=== PATIENT | male | born 1960 | race Caucasian/White ===

== ENCOUNTER 2016-11-14 23:54 | Inpatient (IN) ==
[2016-11-15] MEDS ORDERED: NITROGLYCERIN 2% OINT 1 INCH/GM PACK TOP STA (00:15)
[2016-11-15] MEDS ORDERED: MORPHINE 2 MG/1 ML SYRINGE IV STA (00:15)
[2016-11-15] MEDS ORDERED: hydrALAZINE 20 MG/1 ML VIAL IV STA (00:15)
[2016-11-15] MEDS ORDERED: ASPIRIN 325 MG TABLET PO STA (00:15)
[2016-11-15] MEDS ORDERED: ALUM/MAG/SIMETH/LIDO VISC 1:1 30 ML BOTTLE PO STA (00:15)
[2016-11-15] MEDS ORDERED: ONDANSETRON 4 MG/2 ML VIAL IV STA (00:15)
[2016-11-15] MEDS ORDERED: FUROSEMIDE 40 MG/4 ML VIAL IV STA (00:15)
[2016-11-15] MEDS ORDERED: NITROGLYCERIN 2% OINT 1 INCH/GM PACK TOP ONE (00:23)
[2016-11-15] MEDS ORDERED: hydrALAZINE 20 MG/1 ML VIAL ONE (00:23)
[2016-11-15] MEDS ORDERED: ASPIRIN 325 MG TABLET ONE (00:24)
[2016-11-15] MEDS ORDERED: MORPHINE 2 MG/1 ML SYRINGE ONE (00:24)
[2016-11-15] MEDS ORDERED: FUROSEMIDE 20 MG/2 ML VIAL ONE (00:24)
[2016-11-15] MEDS ORDERED: FUROSEMIDE 40 MG/4 ML VIAL ONE (00:24)
[2016-11-15] MEDS ORDERED: ONDANSETRON 4 MG/2 ML VIAL ONE (00:24)
[2016-11-15] MEDS ORDERED: ALUM/MAG/SIMETH/LIDO VISC 1:1 30 ML BOTTLE PO ONE (00:25)
[2016-11-15 00:29] LABS: PT Patient Result 10.1 SECS
[2016-11-15 00:42] LABS: Basophils % 0.8 % (0.0-0.8); Eosinophils # 0.2 10*3/uL (0.0-0.87); Eosinophils % 4.4 % (0.00-10.9); Hematocrit 39.5 VOL% (42.0-52.0); Hemoglobin 13.1 GM/DL (14.0-18.0); Immature Granulocytes % 0.6 %; Immature Granulocytes Absolute 0.03 #; Lymphocytes # 1.5 10*3/uL (1.4-4.0); Lymphocytes % 30.1 % (21.2-54.2); Mean Corpuscular HGB Conc 33.2 GM/DL (32-36); Mean Corpuscular Hemoglobin 29 PG (27-34); Mean Corpuscular Volume 86.4 FL (87-102); Mean Platelet Volume 11.5 FL (9.6-12.0); Monocytes # 0.4 10*3/uL (0.11-0.8); Monocytes % 7.6 % (1.7-12.7); Neutrophils # 2.8 10*3/uL (1.4-7.4); Neutrophils % 56.5 % (38.7-73.9); Platelet Count 195 T/CUMM (130-400); Red Blood Count 4.57 MC/CUMM (3.8-5.5); Red Cell Distribution Width 13.2 % (9.3-17.3)
[2016-11-15 00:44] LABS: Alanine Aminotransferase 34 U/L (16-61); Albumin 3.5 G/DL (3.4-5.0); Alkaline Phosphatase 58 U/L (45-117); Aspartate Amino Transferase 18 U/L (0-37); Bilirubin,Total < 0.39 MG/DL (0.2-1.0); Blood Urea Nitrogen 22 MG/DL (7-18); Calcium 9.2 MG/DL (8.5-10.1); Glucose 163 MG/DL (74-106); Magnesium 1.9 MG/DL (1.8-2.4); Osmolality,Calculated 283.5 MOS/KG (273-304); Potassium 3.9 MMOL/L (3.5-5.1); Sodium 139 MMOL/L (136-145); Total Protein 7.2 G/DL (6.4-8.3)
--- NOTE | 2016-11-15 00:46 | Emergency Department Note ---
Marcello Nunez Brittany, am scribing for, and in the presence of, Brodie Jorge MD 00:19. Luisito Nunez Charles R, MD, personally performed the services described in this documentation, ascribed by Shante Armendariz in my presence, and it is both accurate and complete . Arrival - Arrival Chief Complaint: Chest Pain Stated Complaint: CHEST PAIN ED Nursing Triage Note: Pt brought by EMS with c/o Chest Pain/ SOB that started a week ago and got worse tonight. Pt was given 40mg Lasix, Nitro x3, and 4mg Zofran. Pt output in ambulance was 600ml. Pt denies any chest pain during triage. BP elevated 209/123. Mode of Arrival: Stretcher Limitations: No Limitations Source: Patient - History of Present Illness HPI Narrative: This is a 56 y/o black male,who presents to the ED by EMS with c/o CP which has been on and off for the past 2 months. He states the pain become worse tonight, prompting the ED visit. He denies any diaphoresis or nausea/vomiting. He notes being SOB with the chest pain. He denies any radiation of the pain. he states he is completely pain free now in the ED. Pt denies having a heart cath. Pt has no other complaints/pain in the ED at this time. Pt has a PMhx of NIDDM, HTN, dyslpidemia, obstructive sleep apnea. Pt has had a colonoscopy. Pt has a family medical hx of heart disease. Pt denies the use of tobacco products and street drugs, but notes occasionally drinking. Onset (ago): month(s) (Started 2 months ago) Consistency: intermittent, now resolved Severity: moderate Allergies/Adverse Reactions: Allergies Allergy/AdvReac Type Severity Reaction Status Date / Time No Known Allergies Allergy Verified 11/15/16 00:00 Home Medications: Home Medications Medication Instructions Recorded Confirmed Type Atorvastatin [Lipitor] 80 mg PO BEDTIME 09/12/15 09/12/15 History Metoprolol Tartrate 25 mg PO DAILY 09/12/15 09/12/15 History Naproxen [Naproxen Tab] 500 mg PO BID W/MEALS 09/12/15 09/16/15 History Saxagliptin HCl [Onglyza] 2.5 mg PO DAILY 09/12/15 09/12/15 History amLODIPine [Norvasc] 10 mg PO DAILY 09/12/15 09/12/15 History cloNIDine TAB [Catapres Tab] 0.2 mg PO BID 09/12/15 11/15/16 History Aspirin 81 mg PO 11/15/16 History Review of System - Review of System 12 point system: reviewed and no additional remarkable complaints except as stated - Review of System Constitutional: Absent: diaphoresis Cardiovascular: Present: chest pain, dyspnea on exertion Gastrointestinal: Absent: nausea, vomiting Medical,Surgical,& Family Hx - Medical History Cardio: History of: Hypertension Neurology: No history of: Seizures Endocrine: History of: Diabetes Mellitus (NIDDM), Dyslipidemia Respiratory: History of: Obstructive Sleep Apnea (C PAP) - Surgical History Abdominal Surgeries: Surgical HX of: Colonoscopy Patient denies: Cholecystectomy, EGD - Social History Smoking Status: Never smoker Frequency of Alcohol Use: Occasionally Type of Drug Use: None Exam Vital Signs: Vital Signs Temperature 97.5 F L 11/14/16 23:55 Pulse Rate 74 11/14/16 23:55 Respiratory Rate 18 11/14/16 23:55 Blood Pressure 209/123 11/14/16 23:55 O2 Sat by Pulse Oximetry 98 11/14/16 23:55 - General General appearance: alert, in no apparent distress - Head Head exam: Present: atraumatic, normocephalic, normal inspection - Eye Eye exam: Present: normal appearance, PERRL, EOMI. Absent: nystagmus, miosis, mydriasis - ENT ENT exam: Present: normal exam, normal oropharynx, mucous membranes moist, TM's normal bilaterally, normal external ear exam - Neck Neck exam: Present: normal inspection, full ROM, trachea midline. Absent: tenderness, meningismus, lymphadenopathy, thyromegaly - Chest Chest inspection: Present: normal inspection, symmetric chest wall rise. Absent : tenderness, rash, abscess - Respiratory Respiratory exam: Present: normal lung sounds bilaterally. Absent: rales, respiratory distress, rhonchi, stridor, wheezes - Cardiovascular Cardiovascular exam: Present: regular rate, normal rhythm, normal heart sounds. Absent: murmur, rubs, gallop, clicks, JVD - Abdominal Exam Abdominal exam: Present: soft, normal bowel sounds. Absent: distention, tenderness, guarding, rebound, rigidity - Rectal Exam Rectal exam: Present: deferred - Extremities Exam Extremities exam: Present: normal capillary refill, pedal edema (+1 pitting edema bilaterally ). Absent: joint swelling, calf tenderness - Back Exam Back exam: Present: normal inspection, full ROM. Absent: tenderness, muscle spasm, rashes - Neurological Exam Neurological exam: Present: alert, oriented X3, CN II-XII intact. Absent: motor sensory deficit - Psychiatric Psychiatric exam: Present: normal affect, normal mood. Absent: depressed, agitated, anxious, flat affect, manic - Skin Skin exam: Present: warm, dry, intact, normal color. Absent: rash, cyanosis, diaphoresis, erythema, pallor, mottled Course - Reevaluation(s) Reevaluation #1: Patient is still pain-free. Patient understands he will be admitted to the hospital for cardiology suspected underlying bony artery disease. Time: 01:00 - Consultations Consultation #1: Spoke to Dr. Grimes cardiology on-call reviewed EKG with him. He agreed no reason to go to the Technical Lead, he agreed no ST elevation CO this point patient is pain-free at this time. Pains been going on for a month. He did agreed to admit the patient for further workup Time: 00:12 Results - Labs CBC & BMP: 11/15/16 00:01 11/15/16 00:01 Lab Results: I have reviewed the patients labs Critical Care Time Critical Care Time: Yes Total Critical Care Time: 60 Disposition Clinical Impression: Chest pain, Hypertensive urgency, Acute coronary syndrome, Elevated troponin Case discussed with: patient, patient's family Disposition: Still a Patient Condition: Guarded Time of Disposition: 00:56
[2016-11-15] MEDS ORDERED: ENOXAPARIN 100 MG/ML SYRINGE SUBCUT STA (00:56)
[2016-11-15] MEDS ORDERED: ENOXAPARIN 100 MG/ML SYRINGE SUBCUT ONE (01:03)
[2016-11-15] MEDS ORDERED: ALBUTEROL/IPRATROPIUM 3 ML NEB RESP TX PRN (01:54)
[2016-11-15] MEDS ORDERED: POTASSIUM CHLORIDE 20 MEQ TABLET PO PRN (01:54)
[2016-11-15] MEDS ORDERED: GLUCAGON 1 MG VIAL IM PRN (01:54)
[2016-11-15] MEDS ORDERED: DEXTROSE 50% 25 GM/50 ML VIAL IV PRN (01:54)
[2016-11-15] MEDS ORDERED: ONDANSETRON 4 MG/2 ML VIAL IV PRN (01:54)
[2016-11-15] MEDS ORDERED: MORPHINE 2 MG/1 ML SYRINGE IV PRN (01:54)
[2016-11-15] MEDS ORDERED: MAGNESIUM SULF RIDER 2 GM in PREMIX 1 EACH IV PRN ×2 (01:54→09:40)
[2016-11-15] MEDS ORDERED: SODIUM CHLORIDE 0.9% 1,000 ML IV SCH (01:54)
[2016-11-15] MEDS ORDERED: MAGNESIUM SULF RIDER 4 GM in PREMIX 1 EACH IV PRN (01:54)
[2016-11-15 04:58] LABS: Basophils % 0.8 % (0.0-0.8); Eosinophils # 0.2 10*3/uL (0.0-0.87); Eosinophils % 4.1 % (0.00-10.9); Hematocrit 42.9 VOL% (42.0-52.0); Hemoglobin 14.8 GM/DL (14.0-18.0); Immature Granulocytes % 0.2 %; Immature Granulocytes Absolute 0.01 #; Lymphocytes % 38.6 % (21.2-54.2); Mean Corpuscular HGB Conc 34.5 GM/DL (32-36); Mean Corpuscular Hemoglobin 29 PG (27-34); Mean Corpuscular Volume 85.3 FL (87-102); Mean Platelet Volume 12.4 FL (9.6-12.0); Monocytes # 0.4 10*3/uL (0.11-0.8); Monocytes % 8.3 % (1.7-12.7); Neutrophils # 2.5 10*3/uL (1.4-7.4); Platelet Count 223 T/CUMM (130-400); Red Blood Count 5.03 MC/CUMM (3.8-5.5); Red Cell Distribution Width 13.2 % (9.3-17.3); White Blood Count 5.2 T/CUMM (4-12)
[2016-11-15 05:50] LABS: Albumin 3.7 G/DL (3.4-5.0); Bilirubin,Total 0.8 MG/DL (0.2-1.0); Calcium 8.5 MG/DL (8.5-10.1); Magnesium 1.9 MG/DL (1.8-2.4); Osmolality,Calculated 281.7 MOS/KG (273-304); Potassium 3.8 MMOL/L (3.5-5.1); Risk Ratio 8.4; Total Protein 7.7 G/DL (6.4-8.3); VLDL CHOLESTEROL 158.8 MG/DL
[2016-11-15] MEDS: NITROGLYCERIN 2% OINT 1 INCH/GM PACK TOP SCH ×3 (06:52→17:56)
--- NOTE | 2016-11-15 07:47 | XRay Report ---
Exam: XR chest 1V portable Indication: Chest pain Comparison study: 03/21/2016 radiograph Findings: The heart, mediastinum and bony structures are stable from prior. There is no focal consolidation, pneumothorax or pleural effusion identified. Impression: No acute cardiopulmonary process. PROCEDURE INTERPRETED AT [facility] [place] DEPARTMENT OF RADIOLOGY Final Report Signed by: José Luis Dailey
[2016-11-15] MEDS ORDERED: METOPROLOL TARTRATE 25 MG TABLET PO SCH (08:00)
[2016-11-15] MEDS: INSULIN REGULAR 100 UNIT/ML SUBCUT SCH ×4 (08:02→22:31)
[2016-11-15] MEDS: PANTOPRAZOLE 40 MG TABLET PO SCH (08:02)
--- NOTE | 2016-11-15 08:14 | EKG Report ---
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
--- NOTE | 2016-11-15 08:14 | XRay Report ---
History short of breath Comparison 11/15/2016 The heart is at the upper range normal in size. Mediastinal contours unchanged No congestive failure or confluent infiltrate is seen Impression: Stable portable chest PROCEDURE INTERPRETED AT [facility] DEPARTMENT OF RADIOLOGY Final Report Signed by: Dr. Julia Kelsey
[2016-11-15] MEDS: ASPIRIN CHEW 81 MG TABLET PO SCH (08:19)
--- NOTE | 2016-11-15 08:38 | EKG Report ---
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
[2016-11-15] MEDS ORDERED: ASPIRIN EC 325 MG TABLET PO SCH (09:00)
--- NOTE | 2016-11-15 09:05 | Cardiology History & Physical ---
Assessment and Plan - Time spent with patient Time spent with patient: Greater than 30 minutes (1) Chest pain Status: Acute Assessment and plan: See plan of care listed below. Current Visit: Yes (2) Hypertensive urgency Status: Acute Assessment and plan: See plan of care listed below. Current Visit: Yes (3) Elevated troponin Status: Acute Assessment and plan: See plan of care listed below. Current Visit: Yes (4) Dyslipidemia Status: Chronic Assessment and plan: See plan of care listed below. Current Visit: Yes (5) Diabetes Status: Chronic Assessment and plan: See plan of care listed below. Current Visit: Yes (6) Obstructive sleep apnea Status: Chronic Assessment and plan: See plan of care listed below. Current Visit: Yes (7) GERD (gastroesophageal reflux disease) Status: Chronic Assessment and plan: See plan of care listed below. Current Visit: Yes (8) Family history of coronary artery disease Status: Chronic Assessment and plan: See plan of care listed below. Current Visit: Yes (9) Renal insufficiency Status: Acute Assessment and plan: See plan of care listed below. 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 Owens, [place]) PCP: [facility] Mr. Gore is a 56 year old male without known history of coronary artery disease, not routinely followed by cardiology. Patient's cardiac risk factors include the following: Uncontrolled hypertension, diabetes, dyslipidemia and family history of coronary artery disease. Patient is a lifetime non-smoker. Denies using street drugs but does drink occasionally. Patient has a past medical history of obstructive sleep apnea(noncompliant with CPAP) and ulcerative colitis. Reports having a history of reflux, takes Nexium for this. Patient has never been worked up by cardiology. Patient presented to [facility] emergency department with complaints of chest pain and shortness of breath 1 month. He describes this pain as a mid sternal chest tightness that does not radiate anywhere. Associated with shortness of breath. Denies associated nausea, vomiting and diaphoresis. He tells me that this usually comes and goes and most frequently occurs after meals and with walking. Lasts approximately 2-3 minutes and relieved with rest. He specifically describes chest discomfort while walking to the mailbox that is relieved after a couple minutes of rest. Patient reports that he is a very active person. Over the past on he confirms easy fatigability and dyspnea on exertion. Denies fever, chills, cough, abdominal pain, nausea, vomiting, melena, palpitations, syncope, orthopnea, PND and lower extremity swelling. Yesterday, he reports that his chest pain lasted longer and was more severe. He tells me that he ate a sandwich and was sitting down watching television. He got up to go to the bathroom and he began having chest discomfort. He describes this as midsternal chest tightness. Lasted approximately 5 minutes and was relieved with rest. He and his are both concerned and felt that he needed to be further evaluated in the emergency department. Subsequently, they called EMS and he was transferred to [facility]. Upon arrival to the emergency department, his blood pressure was noted to be 209 /123. He was no longer experiencing chest pain upon arrival to the emergency department. He was admitted under cardiology's service and housed in the telemetry unit. Patient was seen and examined on the telemetry unit. He is currently without chest pain, heaviness and tightness. Upon exam, patient's chest discomfort is not reproducible to light palpation. Troponin mildly elevated at 0.556. Creatinine is also mildly elevated at 1.5. EKG reveals ST abnormality inferiolaterally. No previous EKG tracings available for comparison. Chest x- ray does not reveal any acute cardiopulmonary processes. BNP stable at 144. Triglycerides elevated at 794. Cholesterol 294. Patient has typical and atypical symptoms. At this point, I will keep patient n.p.o. and continue to cycle cardiac biomarkers as well as EKGs. I will further discuss with Dr. Owens regarding further cardiac workup, invasive versus noninvasive. ASSESSMENT/PLAN: 1. CHEST PAIN - Patient has typical and atypical symptoms. Troponin is mildly elevated at 0.556. Creatinine has also mildly elevated at 1.5. EKG reveals ST abnormality inferiolaterally. No previous EKG tracings available for comparison. At this point, we will keep patient n.p.o. and continue to cycle cardiac biomarkers as well as EKGs. Continue beta-aren, statin and aspirin. I will further discuss with Dr. Owens regarding further cardiac workup, invasive versus noninvasive. I will hold patient's therapeutic dose of Lovenox for possible heart catheterization. 2. ELEVATED TROPONIN - As above. 3. UNCONTROLLED HYPERTENSION - This along with his renal insufficiency could very well be contributing to patient's mildly elevated troponin. Patient's home medications have been reinitiated. Norvasc has been added. We will continue to cycle and monitor blood pressure and adjust his medications as needed. 4. DYSLIPIDEMIA - Lipid panel reviewed. At this point, I will change patient to Crestor and add fenofibrate. Recheck lipid panel as an outpatient in approximately 6 weeks. 5. DIABETES - Sliding scale insulin. Accu-Cheks before meals and at bedtime. 6. GERD - Continue PPI. 7. OBSTRUCTIVE SLEEP APNEA - Noncompliant with CPAP. Patient reports that he needs to have it cleaned. He reports that he will reinitiate his CPAP once this is completed. 8. FAMILY HISTORY OF CAD - Patient confirms family history of premature coronary artery disease. He reports that his mother had a [place] around age 52. 7. RENAL INSUFFICIENCY - Chronicity of this is unknown. Creatinine 1.5. We will monitor this with daily BMP. Will hold off on adding EDWARD inhibitor for fear of worsening renal function. This could possibly be challenged as an outpatient. Fluids initiated for possible cath. Home Medications Medication Instructions Recorded Confirmed Type Atorvastatin [Lipitor] 80 mg PO BEDTIME 09/12/15 09/12/15 History Metoprolol Tartrate 25 mg PO DAILY 09/12/15 09/12/15 History Naproxen [Naproxen Tab] 500 mg PO BID W/MEALS 09/12/15 11/15/16 History Saxagliptin HCl [Onglyza] 2.5 mg PO DAILY 09/12/15 09/12/15 History amLODIPine [Norvasc] 10 mg PO DAILY 09/12/15 09/12/15 History cloNIDine TAB [Catapres Tab] 0.2 mg PO BID 09/12/15 11/15/16 History Aspirin 81 mg PO 11/15/16 History Allergies Allergy/AdvReac Type Severity Reaction Status Date / Time No Known Allergies Allergy Verified 11/15/16 00:00 - Constitutional Constitutional: Present: fatigue. Absent: anorexia, chills, excessive sweating , fever(s), lethargy, malaise, weakness, weight gain, weight loss - Cardiovascular Cardiovascular: Present: as per HPI, chest pain with activity, dyspnea, dyspnea on exertion. Absent: claudication, diaphoresis, edema, radiating jaw, neck or arm pain, lightheadedness, orthopnea, palpitations, PND - Respiratory Respiratory: Present: dyspnea, dyspnea on exertion. Absent: cough, hemoptysis, wheezing, pain on inspiration, change in phlegm color - Gastrointestinal Gastrointestinal: Absent: abdominal pain, change in bowel habits, coffee ground emesis, constipation, diarrhea, hematemesis, hematochezia, loose stools, melena , nausea, vomiting - Neurological Neurological: Absent: abnormal gait, abnormal speech, behavioral changes, disequilibrium, dizziness, numbness, paresthesias, radicular pain, syncope Medical,Surgical,& Family Hx - Medical History Cardio: History of: Hypertension Neurology: No history of: Seizures HEENT: History of: Eye Problem, Glaucoma Endocrine: History of: Diabetes Mellitus (NIDDM), Dyslipidemia Respiratory: History of: Obstructive Sleep Apnea (C PAP) Gastrointestinal: History of: GERD, Ulcerative Colitis - Surgical History Cardiac Surgeries: Patient Denies: Cardiac Catheterization Abdominal Surgeries: Surgical HX of: Colonoscopy - Family History Family History: Reports;: Family Heart Disease - Social History Smoking Status: Never smoker Frequency of Alcohol Use: Occasionally Type of Drug Use: None Marital Status: Lives With:: Spouse Functional capacity: independent ambulation Cardiology Physical Exam - Constitutional Vitals: Vital Signs Temp Pulse Resp BP Pulse Ox 97.4 F L 57 L 20 169/102 98 11/15/16 08:00 11/15/16 08:29 11/15/16 08:29 11/15/16 08:29 11/15/16 08:00 Intake and Output 11/14/16 11/15/16 11/15/16 22:59 06:59 14:59 Intake Total 0 / 0 Balance 0 / 0 Intake: Oral 0 / 0 Other: Voiding Method Urinal # Voids 500 Weight 229 lb 229 lb Patient Weight 11/16/16 06:59 Weight 229 lb Exam: General: Appears well with no apparent distress. Pleasant and cooperative. Appears comfortable. HEENT: PERRL, normocephalic, atraumatic. Mucous membranes moist. No jaundice noted. Conjunctiva moist and clear, sclerae anicteric Neck: No JVD/HJR, no thyromegaly or lymphadenopathy noted. No carotid bruit appreciated Cardiac: Regular rate and rhythm. No murmur rub or gallop. Lungs: Clear to auscultation without accessory muscle use to assist the respiratory pattern. Not requiring oxygen. Abdomen: Soft, bowel sounds normoactive. Nontender and nondistended. No abdominal bruit or thrill noted. No masses noted. Extremities: No clubbing, cyanosis noted. No edema noted. Upper extremity pulses 2+. Lower extremity pulses 2+. Capillary refill less than 3 seconds. Skin: No unusual lesions or rashes. No skin breakdown appreciated. Neuro: Awake, alert and oriented 3. Moves all extremities well without hemiparesis or paralysis. No essential tremor is appreciated. Result/EKG - Labs CBC & BMP: 11/15/16 03:57 11/15/16 03:57 Lab Results: I have reviewed the past 24 hour labs Labs: Laboratory Results - last 24 hr 11/15/16 11/15/16 11/15/16 00:01 00:01 00:01 WBC RBC Hgb Hct MCV MCH MCHC RDW Plt Count MPV Neut % (Auto) Lymph % (Auto) [place] % (Auto) Eos % (Auto) Baso % (Auto) Neut # (Auto) Lymph # (Auto) [place] # (Auto) Eos # (Auto) Baso # (Auto) Immature Gran % Nucleated RBC % Immature Gran # Nucleated RBCs # INR 1.0 PT Patient/Control Mix 10.1 Sodium 139 Potassium 3.9 Chloride 101 Carbon Dioxide 32 Anion Gap 9.9 BUN 22 H Creatinine 1.60 H GFR Calculation 64 BUN/Creatinine Ratio 13.00 Glucose 163 H POC Glucose Calculated Osmolality 283.5 Calcium 9.2 Magnesium 1.9 Total Bilirubin < 0.39 AST 18 ALT 34 Alkaline Phosphatase 58 Troponin I B-Natriuretic Peptide 96 Total Protein 7.2 Albumin 3.5 Globulin 3.7 H Albumin/Globulin Ratio 0.9 L Triglycerides Cholesterol LDL Cholesterol VLDL Cholesterol HDL Cholesterol Heart Disease Risk Ratio Lipase 200.0 11/15/16 11/15/16 11/15/16 00:01 00:01 03:57 WBC 5.0 RBC 4.57 Hgb 13.1 L Hct 39.5 L MCV 86.4 L MCH 29 MCHC 33.2 RDW 13.2 Plt Count 195 MPV 11.5 Neut % (Auto) 56.5 Lymph % (Auto) 30.1 [place] % (Auto) 7.6 Eos % (Auto) 4.4 Baso % (Auto) 0.8 Neut # (Auto) 2.8 Lymph # (Auto) 1.5 [place] # (Auto) 0.4 Eos # (Auto) 0.2 Baso # (Auto) 0.0 Immature Gran % 0.6 Nucleated RBC % 0.0 Immature Gran # 0.03 Nucleated RBCs # 0.00 INR PT Patient/Control Mix Sodium Potassium Chloride Carbon Dioxide Anion Gap BUN Creatinine GFR Calculation BUN/Creatinine Ratio Glucose POC Glucose Calculated Osmolality Calcium Magnesium Total Bilirubin AST ALT Alkaline Phosphatase Troponin I 0.363 H 0.509 H D B-Natriuretic Peptide Total Protein Albumin Globulin Albumin/Globulin Ratio Triglycerides Cholesterol LDL Cholesterol VLDL Cholesterol HDL Cholesterol Heart Disease Risk Ratio Lipase 11/15/16 11/15/16 11/15/16 03:57 03:57 03:57 WBC 5.2 RBC 5.03 Hgb 14.8 Hct 42.9 MCV 85.3 L MCH 29 MCHC 34.5 RDW 13.2 Plt Count 223 MPV 12.4 H Neut % (Auto) 48.0 Lymph % (Auto) 38.6 [place] % (Auto) 8.3 Eos % (Auto) 4.1 Baso % (Auto) 0.8 Neut # (Auto) 2.5 Lymph # (Auto) 2.0 [place] # (Auto) 0.4 Eos # (Auto) 0.2 Baso # (Auto) 0.0 Immature Gran % 0.2 Nucleated RBC % 0.0 Immature Gran # 0.01 Nucleated RBCs # 0.00 INR PT Patient/Control Mix Sodium 138 Potassium 3.8 Chloride 98 Carbon Dioxide 30 Anion Gap 13.8 BUN 23 H Creatinine 1.50 H GFR Calculation 69 BUN/Creatinine Ratio 15.00 Glucose 161 H POC Glucose Calculated Osmolality 281.7 Calcium 8.5 Magnesium 1.9 Total Bilirubin 0.80 AST 31 ALT 40 Alkaline Phosphatase 67 Troponin I B-Natriuretic Peptide 144 H Total Protein 7.7 Albumin 3.7 Globulin 4.0 H Albumin/Globulin Ratio 0.9 L Triglycerides 794 H Cholesterol 294 H LDL Cholesterol 154.0 VLDL Cholesterol 158.8 HDL Cholesterol 35 L Heart Disease Risk Ratio 8.40 Lipase 11/15/16 11/15/16 06:54 07:32 WBC RBC Hgb Hct MCV MCH MCHC RDW Plt Count MPV Neut % (Auto) Lymph % (Auto) [place] % (Auto) Eos % (Auto) Baso % (Auto) Neut # (Auto) Lymph # (Auto) [place] # (Auto) Eos # (Auto) Baso # (Auto) Immature Gran % Nucleated RBC % Immature Gran # Nucleated RBCs # INR PT Patient/Control Mix Sodium Potassium Chloride Carbon Dioxide Anion Gap BUN Creatinine GFR Calculation BUN/Creatinine Ratio Glucose POC Glucose 139 H Calculated Osmolality Calcium Magnesium Total Bilirubin AST ALT Alkaline Phosphatase Troponin I 0.556 H B-Natriuretic Peptide Total Protein Albumin Globulin Albumin/Globulin Ratio Triglycerides Cholesterol LDL Cholesterol VLDL Cholesterol HDL Cholesterol Heart Disease Risk Ratio Lipase
[2016-11-15] MEDS ORDERED: amLODIPine 10 MG TABLET PO SCH (09:30)
[2016-11-15] MEDS ORDERED: LISINOPRIL 2.5 MG TABLET PO SCH (09:30)
[2016-11-15] MEDS ORDERED: diphenhydrAMINE CAP 25 MG CAPSULE PO ONE (09:40)
[2016-11-15] MEDS ORDERED: DIAZEPAM 5 MG TABLET PO ONE (09:40)
[2016-11-15] MEDS ORDERED: POTASSIUM CHLORIDE RIDER 10 MEQ in PREMIX 1 EACH IV PRN (09:40)
[2016-11-15] MEDS ORDERED: HEPARIN/NACL 0.9% 2 UNITS/ML 1,000 ML IV ONE (09:42)
[2016-11-15] MEDS ORDERED: LIDOCAINE 1% 20 ML VIAL ONE (09:42)
[2016-11-15] MEDS ORDERED: NITROGLYCERIN DRIP 50 MG/250 ML BOTTLE IV ONE (09:42)
[2016-11-15] MEDS ORDERED: diphenhydrAMINE CAP 50 MG CAPSULE ONE (09:42)
[2016-11-15] MEDS ORDERED: VERAPAMIL 5 MG/2 ML VIAL ONE (09:42)
[2016-11-15] MEDS ORDERED: DIAZEPAM 5 MG TABLET ONE (09:43)
[2016-11-15] MEDS: SODIUM CHLORIDE 0.45% 1,000 ML IV SCH ×2 (09:58→18:31)
[2016-11-15] MEDS ORDERED: MIDAZOLAM 2 MG/2 ML VIAL ONE (10:00)
[2016-11-15] MEDS ORDERED: HYDROmorphone 2 MG/1 ML VIAL ONE (10:00)
[2016-11-15] MEDS ORDERED: ENOXAPARIN 60 MG/0.6 ML SYRINGE ONE (10:00)
[2016-11-15] MEDS ORDERED: TICAGRELOR 90 MG TABLET ONE (10:30)
[2016-11-15] MEDS ORDERED: TICAGRELOR 90 MG TABLET PO ONE (10:59)
[2016-11-15] MEDS ORDERED: ASPIRIN EC 81 MG TABLET PO SCH (11:00)
[2016-11-15] MEDS ORDERED: ENOXAPARIN 100 MG/ML SYRINGE SUBCUT SCH (11:00)
--- NOTE | 2016-11-15 11:07 | Cardiac Catheterization ---
Date of Procedure:: 11/15/16 Procedure: CLINICAL HISTORY: Please see the history and physical. The patient had symptoms of unstable angina with abnormal cardiac enzymes. Is undergoing cardiac catheterization for definitive coronary artery assessment possible revascularization. PROCEDURES PERFORMED: 1. Right radial percutaneous arteriotomy 2. Left heart catheterization 3. Resting hemodynamics 4. Left ventriculography. 5. Coronary arteriography 6. Hemoband placement 7. Percutaneous coronary intervention to the proximal to mid left anterior descending coronary artery with a 4.0 x 18 mm Xience alpine drug-eluting stent. DESCRIPTION OF PROCEDURE: After obtaining informed consent, the patient was taken to the pharmaceutical laboratory technician, prepped and draped in the usual sterile manner. We accessed the right radial artery using modified Seldinger technique in the usual fashion. We placed a 6-Czech slim sheath without difficulty. We then used a Tig catheter to engage the right coronary and left main coronary arteries to perform angiography in multiple orthogonal views. We then proceeded directly to percutaneous coronary intervention on the proximal to mid left anterior descending coronary artery. We engaged the left main coronary artery with a Pamela 3.5 guide catheter and passed a PT Graphix wire beyond the area of stenosis in the proximal to mid vessel. We then perform primary stenting with a 4.0 x 18 mm Xience alpine drug-eluting stent. An excellent angiographic result was achieved with no significance residual stenosis at the site of intervention. There was high-grade disease in a diagonal branch which was also jailed by the stent. We could not cross into this diagonal branch so this will be managed medically. There were no problems or complications during the procedure. We then used an angled pigtail catheter to perform a left heart catheterization with left ventriculogram and pressure measurement in the usual fashion. After removing the catheter, we placed a HemoBand and removed the sheath without difficulty. There were no problems during the case. HEMODYNAMICS: Please see the accompanying data sheet. CORONARIES: The left main coronary artery is a large-caliber vessel which trifurcates into the left anterior descending left circumflex and ramus intermedius branches. The left main coronary artery is angiographically free of significant obstructive disease. The left circumflex coronary artery is a large-caliber dominant vessel which gives off a large posterior lateral system and the posterior descending branch. The circumflex coronary artery and its tributaries are angiographically free of significant obstructive disease. The ramus intermedius is a moderate-sized vessel which courses over the anterolateral wall. This vessel has mild luminal irregularities but no significant obstructive disease. The left anterior descending is a large-caliber vessel which gives off a small to moderate size first diagonal branch and 2 other small to moderate-sized diagonals more distally. There is a complex area of severe disease of up to 90 % stenosis in the proximal left anterior descending coronary artery involving the first septal music coordinator and the first diagonal branch. There appears to be high-grade stenosis in the first diagonal branch as well. The right coronary artery is a moderate to small size nondominant vessel which is angiographically free of significant obstructive disease. LEFT VENTRICULOGRAPHY: Left ventriculogram shows left ventricular ejection fraction of approximately 50% with grossly normal regional wall motion. IMPRESSION: 1. Successful percutaneous coronary intervention to the high-grade disease in the proximal to mid left anterior descending coronary artery with a 4.0 x 18 mm Xience alpine drug-eluting stent as described above. 2. Left ventricular ejection fraction appears to be preserved at this time. 3. Successful hemo-band placement on the right radial artery. PLAN: The patient was transferred to telemetry for postintervention monitoring and management. If he does well I would anticipate being able to discharge him home tomorrow. We will continue risk factor modification and medical management. Anesthesia: minimal conscious sedation Surgeon / Physician: Mohan Lee Estimated blood loss: minimal Condition: stable Disposition: floor - Medications / Follow-up
--- NOTE | 2016-11-15 12:14 | EKG Report ---
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
[2016-11-15 12:33] LABS: Troponin I Only 0.509 NG/ML (0.00-0.045)
[2016-11-15] MEDS: FENOFIBRATE 48 MG TABLET PO SCH (13:26)
[2016-11-15] MEDS: CARVEDILOL 12.5 MG TABLET PO SCH ×2 (13:26→22:31)
--- NOTE | 2016-11-15 16:09 | ECHO Report ---
[facility] Exam Date: 11/15/2016 12:20 Referring Physician: Technologist: Carina Johns Age: 56 Ht (in): 75 Wt (lb): 229 Gender: M Exam Location: [facility] Echo Indications: CAD, S/P CATH, dyslipidemia, diabetes, JOSE, GERD, chest pain, SOB, HTN, elevated troponin BP: 169 / 102 HR: 57 Rhythm: Sinus Technical Quality: Technically difficult study IMPRESSIONS Technically difficult study. Left ventricular ejection fraction is estimated at 50 %. Mild left ventricular hypertrophy. Trace mitral valve regurgitation. MEASUREMENTS (Male / Female) Normal Values 2D ECHO LV Diastolic Diameter PLAX 4.6 cm 4.2 - 5.9 / 3.9 - 5.3 cm LV Systolic Diameter PLAX 3.8 cm LV Fractional Shortening PLAX 17.1 % IVS Diastolic Thickness 1.4 cm 0.6 - 1.0 / 0.6 - 0.9 cm LVPW Diastolic Thickness 1.1 cm 0.6 - 1.0 / 0.6 - 0.9 cm RV Internal Dim ED PLAX 2.4 cm Aortic Root Diameter 2.6 cm LA Systolic Diameter LX 3.3 cm 3.0 - 4.0 / 2.7 - 3.8 cm FINDINGS Left Ventricle Normal left ventricular cavity size. Mild left ventricular hypertrophy. Left ventricular ejection fraction is estimated at 50 %. Right Ventricle The right ventricle is normal in size and function. Right Atrium The right atrium is normal in size. Left Atrium The left atrium is normal in size. Mitral Valve Morphologically normal mitral valve. Trace mitral valve regurgitation. Aortic Valve Morphologically normal aortic valve without significant sclerosis or stenosis. There is no aortic regurgitation. Tricuspid Valve Morphologically normal tricuspid valve without significant stenosis or regurgitation. Pulmonary artery systolic pressure is normal. Pulmonic Valve Morphologically normal pulmonic valve without significant stenosis. There is no pulmonic regurgitation. Pericardium Normal pericardium without effusion. Aorta Normal ascending aorta dimension. Mohan Lee (Electronically Signed) Final Date: 15 November 2016 16:08
[2016-11-15] MEDS ORDERED: ATORVASTATIN 80 MG TABLET PO SCH (21:00)
[2016-11-15] MEDS ORDERED: ROSUVASTATIN 10 MG TABLET PO SCH (21:00)
[2016-11-16] MEDS: NITROGLYCERIN 2% OINT 1 INCH/GM PACK TOP SCH ×3 (01:24→11:59)
[2016-11-16 05:26] LABS: Basophils % 0.3 % (0.0-0.8); Eosinophils # 0.2 10*3/uL (0.0-0.87); Eosinophils % 2.8 % (0.00-10.9); Hematocrit 39.1 VOL% (42.0-52.0); Hemoglobin 13.2 GM/DL (14.0-18.0); Immature Granulocytes % 0.5 %; Immature Granulocytes Absolute 0.03 #; Lymphocytes # 1.2 10*3/uL (1.4-4.0); Lymphocytes % 18.5 % (21.2-54.2); Mean Corpuscular HGB Conc 33.8 GM/DL (32-36); Mean Corpuscular Hemoglobin 29 PG (27-34); Mean Corpuscular Volume 85.7 FL (87-102); Mean Platelet Volume 11.1 FL (9.6-12.0); Monocytes # 0.5 10*3/uL (0.11-0.8); Monocytes % 7.5 % (1.7-12.7); Neutrophils # 4.5 10*3/uL (1.4-7.4); Neutrophils % 70.4 % (38.7-73.9); Red Blood Count 4.56 MC/CUMM (3.8-5.5); Red Cell Distribution Width 13.2 % (9.3-17.3); White Blood Count 6.4 T/CUMM (4-12)
[2016-11-16 05:29] LABS: Platelet Count 178 T/CUMM (130-400)
[2016-11-16 05:49] LABS: Magnesium 1.8 MG/DL (1.8-2.4); Osmolality,Calculated 279.7 MOS/KG (273-304); Potassium 3.9 MMOL/L (3.5-5.1)
--- NOTE | 2016-11-16 07:10 | EKG Report ---
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
[2016-11-16] MEDS: INSULIN REGULAR 100 UNIT/ML SUBCUT SCH ×2 (08:56→11:59)
[2016-11-16] MEDS: SODIUM CHLORIDE 0.45% 1,000 ML IV SCH ×2 (08:56→11:58)
[2016-11-16] MEDS: PANTOPRAZOLE 40 MG TABLET PO SCH (08:57)
[2016-11-16] MEDS: FENOFIBRATE 48 MG TABLET PO SCH (08:57)
[2016-11-16] MEDS: ASPIRIN CHEW 81 MG TABLET PO SCH (08:57)
[2016-11-16] MEDS: CARVEDILOL 12.5 MG TABLET PO SCH (08:57)
[2016-11-16] MEDS ORDERED: TICAGRELOR 90 MG TABLET PO SCH (09:00)
[2016-11-16] MEDS ORDERED: LOSARTAN 50 MG TABLET PO SCH (09:00)
--- NOTE | 2016-11-16 11:12 | Discharge Summary ---
Hospital Course - Hospital Course Hospital Course: Electron Gun Inspector: Dr. Lee, new PCP: Dr. Kathy Hawley Patient presented to [facility] with non-ST elevation AL. He has a past medical history of hypertension, GERD, renal insufficiency, obstructive sleep apnea(CPAP at home, encouraged compliance) and dyslipidemia. Patient was taken to the catheterization lab per Dr. Mohan Lee with the following impressions noted: IMPRESSION: 1. Successful percutaneous coronary intervention to the high-grade disease in the proximal to mid left anterior descending coronary artery with a 4.0 x 18 mm Xience alpine drug-eluting stent as described above. 2. Left ventricular ejection fraction appears to be preserved at this time. Ejection fraction 50%. 3. Successful hemo-band placement on the right radial artery. Post catheterization patient was transported back to the telemetry unit in stable condition. He tolerated procedure well and has been without complications. This morning, he is without chest pain, heaviness and tightness. Right radial cath site is stable without bleeding or hematoma. Right radial pulse 2+. Creatinine post catheterization is unchanged at 1.6. Patient will be given a follow-up appointment with his PCP, Dr. Kathy Hawley in 1 week for repeat BMP. Lipid panel was obtained this admission and revealed a triglyceride level of 794. Total cholesterol 294 and LDL 154. Prior to admission, patient was on Lipitor 80 mg daily. This was switched to Crestor and TriCor was added in order to achieve LDL goal. Lipid panel should be rechecked in approximately 6 weeks. This hospitalization, patient's blood pressure has been uncontrolled. Upon admission it was noted to be 209/123. Patient's medications have been adjusted and is now under well control. Per patient report, he is not a diabetic and does not take diabetic medications. A1c was checked and was noted to be 6.4. Patient appears to be a borderline diabetic. He will follow-up with his PCP in 1 week for further management of this. Educated patient on the importance of compliance with dual antiplatelet therapy. He and his both verbalized understanding of this. He will be discharged home on Brilinta and aspirin. Patient has been given a follow-up appointment with Dr. Lee in 2 weeks with CBC and EKG. He has also been given a follow-up appointment with his PCP in 1 week for repeat BMP and management of his borderline diabetes. Patient's discharge medications will include the following: Brilinta 90 mg twice daily Carvedilol 12.5 mg twice daily TriCor 40 mg p.o. daily Losartan 50 mg p.o. daily Procardia XL 60 mg p.o. daily Crestor 10 mg at bedtime Aspirin 81 mg daily - Time spent with patient Time with patient DS: Greater than 30 minutes Diagnosis - Discharge Diagnosis (1) Non-ST elevation AL (NSTEMI) Status: Resolved (2) Hypertensive urgency Status: Resolved (3) Dyslipidemia Status: Chronic (4) Obstructive sleep apnea Status: Chronic (5) GERD (gastroesophageal reflux disease) Status: Chronic (6) Family history of coronary artery disease Status: Chronic (7) Renal insufficiency Status: Chronic (8) Borderline diabetic Status: Chronic Specialty Discharge - Follow Up or Referrals Follow up with: Kathy Hawley M.D. [Physician] - (First available appointment with BMP.) Mohan Lee MD [Physician] - 2 Weeks (With CBC and EKG.) Discharge Plan - Discharge Data Disposition: Disch To Home/Self Care Condition at Discharge: Stable Discharge Diet: diabetic diet, heart healthy Activity: resume usual activities as tolerated, other (Post cath expectations) Hygiene: may shower, other (Post cath expectations) Weight Bearing at Discharge: other (Post cath expectations) Driving: no restrictions Contact your physician if you experience:: fever over 101, Difficulty voiding, Redness or swelling, Nausea/Vomiting, Shortness of breath, Bleeding, pain uncontrolled by pain medications - Discharge Medications New Losartan [Cozaar] 50 mg PO DAILY #30 tablet NIFEdipine XL TAB [Procardia Xl] 60 mg PO BEDTIME #60 tablet Nitroglycerin Sl Tab [Nitrostat] 0.4 mg SL Q5M PRN #1 bottle PRN Reason: Chest Pain Ticagrelor [Brilinta] 90 mg PO BID #60 tablet Carvedilol [Coreg] 12.5 mg PO BID #60 tablet Fenofibrate [Tricor] 48 mg PO DAILY #30 tablet Rosuvastatin [Crestor] 10 mg PO BEDTIME #30 tablet Changed Aspirin 81 mg PO DAILY #30 Discontinued amLODIPine [Norvasc] 10 mg PO DAILY Naproxen [Naproxen Tab] 500 mg PO BID W/MEALS cloNIDine TAB [Catapres Tab] 0.2 mg PO BID Metoprolol Tartrate 25 mg PO DAILY Atorvastatin [Lipitor] 80 mg PO BEDTIME Saxagliptin HCl [Onglyza] 2.5 mg PO DAILY - Follow Up or Referral - Forms/Instructions Exam - Constitutional Vitals: Period Temp Pulse Resp BP Sys/Renner Pulse Ox Last 24 Hr 97 F-100 F 58-82 16-20 111-176/73-98 92-100 Exam: General: Appears well with no apparent distress. Pleasant and cooperative. Appears comfortable. HEENT: PERRL, normocephalic, atraumatic. Mucous membranes moist. No jaundice noted. Conjunctiva moist and clear, sclerae anicteric Neck: No JVD/HJR, no thyromegaly or lymphadenopathy noted. No carotid bruit appreciated Cardiac: Regular rate and rhythm. No murmur rub or gallop. Lungs: Clear to auscultation without accessory muscle use to assist the respiratory pattern. Not requiring oxygen. Abdomen: Soft, bowel sounds normoactive. Nontender and nondistended. No abdominal bruit or thrill noted. No masses noted. Extremities: No clubbing, cyanosis noted. No edema noted. Upper extremity pulses 2+. Lower extremity pulses 2+. Capillary refill less than 3 seconds. Right radial cath site without bleeding or hematoma. Right radial pulse 2+. Skin: No unusual lesions or rashes. No skin breakdown appreciated. Neuro: Awake, alert and oriented 3. Moves all extremities well without hemiparesis or paralysis. No essential tremor is appreciated. Discharge Results Procedures and tests throughout hospitalization: Pending Orders 11/17/16 04:00 BMP w/ Mg [Basic Metabolic Panel w/Mg] IN AM CBC [Comp Blood Count Auto Diff] IN AM 11/18/16 04:00 BMP w/ Mg [Basic Metabolic Panel w/Mg] IN AM CBC [Comp Blood Count Auto Diff] IN AM 11/19/16 04:00 BMP w/ Mg [Basic Metabolic Panel w/Mg] IN AM CBC [Comp Blood Count Auto Diff] IN AM Labs on day of discharge: Labs from last 24 hours 11/16/16 11/16/16 11/16/16 07:33 04:35 04:35 WBC 6.4 RBC 4.56 Hgb 13.2 L Hct 39.1 L MCV 85.7 L MCH 29 MCHC 33.8 RDW 13.2 Plt Count 178 D MPV 11.1 Neut % (Auto) 70.4 Lymph % (Auto) 18.5 L [place] % (Auto) 7.5 Eos % (Auto) 2.8 Baso % (Auto) 0.3 Neut # (Auto) 4.5 Lymph # (Auto) 1.2 L [place] # (Auto) 0.5 Eos # (Auto) 0.2 Baso # (Auto) 0.0 Immature Gran % 0.5 Nucleated RBC % 0.0 Immature Gran # 0.03 Nucleated RBCs # 0.00 Sodium 138 Potassium 3.9 Chloride 101 Carbon Dioxide 30 Anion Gap 10.9 BUN 22 H Creatinine 1.60 H GFR Calculation 64 BUN/Creatinine Ratio 13.00 Glucose 127 H POC Glucose 131 H Calculated Osmolality 279.7 Calcium 8.0 L Magnesium 1.8 Total Creatine Kinase CK-MB (CK-2) Troponin I 11/15/16 11/15/16 11/15/16 20:24 16:16 12:16 WBC RBC Hgb Hct MCV MCH MCHC RDW Plt Count MPV Neut % (Auto) Lymph % (Auto) [place] % (Auto) Eos % (Auto) Baso % (Auto) Neut # (Auto) Lymph # (Auto) [place] # (Auto) Eos # (Auto) Baso # (Auto) Immature Gran % Nucleated RBC % Immature Gran # Nucleated RBCs # Sodium Potassium Chloride Carbon Dioxide Anion Gap BUN Creatinine GFR Calculation BUN/Creatinine Ratio Glucose POC Glucose 116 H 191 H 138 H Calculated Osmolality Calcium Magnesium Total Creatine Kinase CK-MB (CK-2) Troponin I 11/15/16 11:42 WBC RBC Hgb Hct MCV MCH MCHC RDW Plt Count MPV Neut % (Auto) Lymph % (Auto) [place] % (Auto) Eos % (Auto) Baso % (Auto) Neut # (Auto) Lymph # (Auto) [place] # (Auto) Eos # (Auto) Baso # (Auto) Immature Gran % Nucleated RBC % Immature Gran # Nucleated RBCs # Sodium Potassium Chloride Carbon Dioxide Anion Gap BUN Creatinine GFR Calculation BUN/Creatinine Ratio Glucose POC Glucose Calculated Osmolality Calcium Magnesium Total Creatine Kinase 152 CK-MB (CK-2) 1.8 Troponin I 0.509 H - Imaging and Cardiology Cardiology Procedure: report reviewed by DS: Provider Date of admission: 11/15/16 01:01 Primary care physician: . 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
[2016-11-16 12:15] VITALS: BP 144/78
== END 2016-11-16 13:28 | disposition home or self-care (01) | DRG 247 ==
LOC: EDUNIT# → EDBD → N.ED 23:54 → N.EDINP 11-15 01:01 → N.TELEN 11-15 01:33
PROVIDERS: ADMIT Internal Medicine Interventional Cardiology; ATTEND Internal Medicine Interventional Cardiology
PROC: CLCCHCL (ICD-10-PCS; 2016-11-15 10:15)